=== PATIENT | female | born 1975 | race Caucasian/White ===

== ENCOUNTER 2016-05-17 09:15 | Outpatient (CLI) | payer OTHER ==
[2016-05-17] MEDS ORDERED: BARIUM SULFATE 135 ML BOTTLE PO ONE (10:27)
[2016-05-17] MEDS ORDERED: BARIUM SULFATE 176 GM BOTTLE PO ONE (10:27)
== END 2016-05-17 09:16 | disposition home or self-care (01) ==
DX: K21.9 Gastro-esophageal reflux disease without esophagitis (principal)
CPT/HCPCS: 74220; A9270

== ENCOUNTER 2016-06-08 13:54 | Day surgery (SDC) | payer OTHER ==
[2016-06-08] MEDS ORDERED: LACTATED RINGERS 1,000 ML IV ONE (14:21)
[2016-06-08] MEDS ORDERED: fentaNYL 250 MCG/5 ML VIAL IVP ONE (16:51)
[2016-06-08] MEDS ORDERED: MIDAZOLAM 2 MG/2 ML VIAL IVP ONE (16:51)
== END 2016-06-08 13:55 | disposition home or self-care (01) ==
PROC: 0DB68ZX Excision of Stomach, Via Natural or Artificial Opening Endoscopic, Diagnostic (ICD-10-PCS; principal; 2016-06-08 15:15)
DX: R11.10 Vomiting, unspecified (principal); R12 Heartburn; K31.7 Polyp of stomach and duodenum; I10 Essential (primary) hypertension; K21.9 Gastro-esophageal reflux disease without esophagitis
CPT/HCPCS: 43239; 81025; J3010; J7120

== ENCOUNTER 2016-06-14 10:43 | Outpatient (CLI) | payer OTHER | END 2016-06-14 10:44 | disposition home or self-care (01) | DX: K30 Functional dyspepsia (principal) ==

== ENCOUNTER 2016-06-27 18:58 | Outpatient (CLI) | payer OTHER | END 2016-06-27 18:59 | disposition home or self-care (01) | DX: K30 Functional dyspepsia (principal) ==

== ENCOUNTER 2017-12-01 09:25 | Outpatient (CLI) | payer MEDICAID, OTHER ==
[2017-12-01 12:10] LABS: BASOPHILS % (AUTO) 0.6 %; EOSINOPHILS # (AUTO) 0.1 10^3/uL (0.0-0.7); EOSINOPHILS % (AUTO) 1.4 %; HGB - HEMOGLOBIN 11.1 g/dL (12.0-16.0); LYMPHOCYTES # (AUTO) 1.8 10^3/uL (1.5-3.5); LYMPHOCYTES % (AUTO) 26.9 %; MEAN CORPUSCULAR HEMOGLOBIN 27.5 pg (27.0-31.0); MEAN CORPUSCULAR HGB CONC 33.2 g/dL (32.0-36.0); MEAN CORPUSCULAR VOLUME 82.8 fL (81.0-99.0); MEAN PLATELET VOLUME 8.2 fL (7.9-10.8); MEAN RETIC VALUE 104.8; MONOCYTES # (AUTO) 0.6 10^3/uL (0.0-1.0); NEUTROPHILS # (AUTO) 4.2 10^3/uL (1.5-6.6); NEUTROPHILS % (AUTO) 62.1 %; PLT - PLATELET COUNT 278 10^3/uL (130-450); RED BLOOD COUNT 4.03 10^6/uL (4.20-5.40); RED CELL DISTRIBUTION WIDTH 15.3 % (12.0-15.0); WHITE BLOOD COUNT 6.7 x10^3/uL (4.8-10.8)
[2017-12-01 12:49] LABS: FERRITIN 4.9 ng/mL (11.0-306.8)
[2017-12-01 12:53] LABS: FOLATE 20.04 ng/mL (5.90 - >24.8)
[2017-12-01 13:32] LABS: % IRON SATURATION 6 % (20-50); IRON 28 ug/dL (28-170); TOTAL IRON BINDING CAPACITY 498 ug/dL (250-450); TRANSFERRIN 356 mg/dL (192-382)
== END 2017-12-01 09:26 | disposition home or self-care (01) ==
LOC: LAB.WCP 09:25
PROVIDERS: ATTEND Family Medicine
DX: D50.9 Iron deficiency anemia, unspecified (principal)
CPT/HCPCS: 36415; 82607; 82728; 82746; 83540; 84466; 85025; 85044

== ENCOUNTER 2018-05-08 21:43 | Emergency (ER) | payer BC, OTHER ==
[2018-05-08 21:53] VITALS: BP 164/86
[2018-05-08] MEDS ORDERED: HYDROcod/ACETAM 5/325 MG TABLET PO STA (21:57)
[2018-05-08] MEDS ORDERED: IBUPROFEN 800 MG TABLET PO STA (21:57)
--- NOTE | 2018-05-08 21:59 | ED Physician Documentation ---
PD HPI LOWER EXT INJURY - Stated complaint Stated Complaint: FALL/FOOT PX - Chief complaint Chief Complaint: Trauma Ext - History obtained from History obtained from: Patient - History of Present Illness PD HPI LOW EXT INJURY LOCATION: Left, Foot Type of injury: Fall, Twist Where injury occurred: Home Timing - onset: Today Timing - details: Abrupt onset Review of Systems Constitutional: reports: Reviewed and negative Cardiac: reports: Reviewed and negative Respiratory: reports: Reviewed and negative PD PAST MEDICAL HISTORY - Past Medical History Cardiovascular: None Respiratory: None Endocrine/Autoimmune: None GI: GERD : None HEENT: None Psych: None Musculoskeletal: None Derm: None, Other - Past Surgical History Derm: Skin cancer surgery - Present Medications Home Medications: Ambulatory Orders Medication Instructions Recorded Confirmed Bcp 05/08/18 Hydrocodone/Acetaminophen 1 - 2 each PO Q6H PRN #14 tablet 05/08/18 [Hydrocodon-Acetaminophen 5-325] - Allergies Allergies/Adverse Reactions: Allergies Allergy/AdvReac Type Severity Reaction Status Date / Time cefixime [From Suprax] Allergy Unknown Verified 05/08/18 21:57 PD ED PE NORMAL - Vitals Vital signs reviewed: Yes - General General: Alert and oriented X 3, No acute distress - Extremities Extremities: Other (Tender and swollen over the left proximal fifth metatarsal without ankle or proximal fibular tenderness.) - Neuro Neuro: Alert and oriented X 3, Normal speech - Psych Psych: Normal mood, Normal affect Results - Vitals Vitals: Vital Signs - 24 hr 05/08/18 21:47 Temperature 36.1 C L Heart Rate 78 Respiratory 24 Rate Blood Pressure 164/86 H O2 Saturation 100 Oxygen O2 Source Room air Departure - Departure Disposition: 01 Home, Self Care Clinical Impression: Sprain of left foot Qualifiers: Encounter type: initial encounter Qualified Code(s): S93.602A - Unspecified sprain of left foot, initial encounter Condition: Good Record reviewed to determine appropriate education?: Yes Instructions: ED Sprain Foot Prescriptions: Hydrocodone/Acetaminophen [Hydrocodon-Acetaminophen 5-325] 1 - 2 each PO Q6H PRN #14 tablet PRN Reason: pain Comments: You can take ibuprofen in addition to the prescription pain medication as needed for pain. Return for new or worsening symptoms. Follow-up with your doctor in 1 week if not better. Do not drink or drive while taking narcotic pain medication. Note that many narcotic pain relievers also contain Tylenol/acetaminophen. Please ensure that your total dose of acetaminophen from all sources does not exceed 3 g (3000 mg) per day. You may get constipated while on this medication. Take a stool softener such as Colace twice a day while you are on it. Also add an xryp-zxp-hnrxmot laxative such as senna or MiraLAX on any day that you do not have a bowel movement. If you received a narcotic pain medication or sedative while in the emergency department, do not drive for the next 24 hours. Your blood pressure was elevated today on check into the emergency department. This does not mean that you have hypertension, it is a common phenomenon to come to the emergency department and have elevated blood pressure. I recommend that you see your primary care physician within the week to have it rechecked when you are feeling better.
--- NOTE | 2018-05-08 22:26 | XRAY Report ---
Reason: injruy from fall/ R foot pain Procedure Date: 05/08/2018 Accession Number: [id number] / [id number] Procedure: XR - Foot 3 View LT CPT Code: FULL RESULT: EXAM: LEFT FOOT RADIOGRAPHY EXAM DATE: 05/08/2018 10:09 PM. CLINICAL HISTORY: Injruy from fall/ R foot pain. COMPARISON: None. TECHNIQUE: 3 views. FINDINGS: Bones: Normal. No fractures or bone lesions. Joints: Normal. No subluxations. Soft Tissues: Lateral soft tissue swelling. No radiopaque foreign body identified. IMPRESSION: Soft tissue swelling, but no evidence of acute fracture. RADIA
[2018-05-08] MEDS ORDERED: HYDROcod/ACET 5/325 Prepack 4 PO STA (22:30)
== END 2018-05-08 22:43 | disposition home or self-care (01) ==
LOC: ED 21:43
DX: S93.602A Unspecified sprain of left foot, initial encounter (principal); X50.1XXA Overexertion from prolonged static or awkward postures, initial encounter; Y93.89 Activity, other specified; Y92.008 Other place in unspecified non-institutional (private) residence as the place of occurrence of the external cause
CPT/HCPCS: 73630; 99283; A9270

== ENCOUNTER 2018-05-29 11:39 | Outpatient (CLI) | payer BC ==
--- NOTE | 2018-05-29 15:21 | XRAY Report ---
Reason: SPRAIN OF OTHER LIGAMENT OF LT ANKLE,INITIAL ENCOU Procedure Date: 05/29/2018 Accession Number: [id number] / [id number] Procedure: WCP - Foot 3 View LT CPT Code: FULL RESULT: EXAM: LEFT FOOT RADIOGRAPHY EXAM DATE: 05/29/2018 11:58 AM. CLINICAL HISTORY: Sprain of other ligament of left ankle, initial encounter. COMPARISON: Foot 3 views left 05/08/2018 9:54 PM. TECHNIQUE: 3 views. FINDINGS: Bones: Normal. No fractures or bone lesions. Joints: Normal. No subluxations. Soft Tissues: No soft tissue gas or foreign body is identified. IMPRESSION: No fracture or dislocation. RADIA
--- NOTE | 2018-05-29 15:21 | XRAY Report ---
Reason: SPRAIN OF OTHER LIGAMENT OF LT ANKLE,INITIAL ENCOU Procedure Date: 05/29/2018 Accession Number: [id number] / [id number] Procedure: WCP - Ankle 3 View LT CPT Code: FULL RESULT: EXAM: LEFT ANKLE RADIOGRAPHY. EXAM DATE: 05/29/2018 11:58 AM. CLINICAL HISTORY: Sprain of other ligament of left ankle, initial encounter. COMPARISON: None. TECHNIQUE: 3 views. FINDINGS: Bones: Normal. No fractures or bone lesions. Joints: Normal. No effusion. No subluxations. The ankle mortise is normally aligned. Soft Tissues: Mild soft tissue swelling. IMPRESSION: Normal ankle radiography. RADIA
== END 2018-05-29 11:40 | disposition home or self-care (01) ==
LOC: DI.WCP 11:39
PROVIDERS: ATTEND Physician Assistant Medical
DX: S93.492A Sprain of other ligament of left ankle, initial encounter (principal)

== ENCOUNTER 2018-07-06 11:35 | Outpatient (CLI) | payer BC ==
--- NOTE | 2018-07-09 14:57 | Mammography Report ---
Reason: SCREENING MAMMO Procedure Date: 07/06/2018 Accession Number: [id number] / [id number] Procedure: MGN - Screening Mammo Dig Bilat CPT Code: FULL RESULT: EXAM: Screening Mammo Dig Bilat DATE: 07/06/2018 11:57 AM CLINICAL HISTORY: Screening exam. No reported risk factors. TECHNIQUE: (B) - Bilateral CC, laterally exaggerated CC, MLO views were obtained. COMPARISON: Baseline examination. PARENCHYMAL PATTERN: (VD) - The breast(s) demonstrate(s) extremely dense parenchyma, limiting the sensitivity of mammography. FINDINGS: There are no suspicious masses, calcifications, or areas of distortion. IMPRESSION: Negative examination. BI-RADS category 1. RECOMMENDATION: (ANNUAL) - Recommend routine annual screening mammography. BI-RADS CATEGORY: (1) - Negative. STANDARD QUALIFYING STATEMENTS: 1. This examination was reviewed with the aid of Computer-Aided Detection (CAD). 2. A negative or benign imaging report should not preclude biopsy if clinically suspicious findings are present. 3. Dense breasts may obscure an underlying neoplasm. 4. This examination was reviewed without the aid of 3D breast imaging (tomosynthesis).
== END 2018-07-06 11:36 | disposition home or self-care (01) ==
LOC: DI.N 11:35
DX: Z12.31 Encounter for screening mammogram for malignant neoplasm of breast (principal)
CPT/HCPCS: 77067

== ENCOUNTER 2018-07-09 05:36 | Outpatient (CLI) | payer BC ==
--- NOTE | 2018-07-09 10:16 | Ultrasound Report ---
Reason: PELVIC PAIN Procedure Date: 07/09/2018 Accession Number: [id number] / [id number] Procedure: US - Pelvic w/Transvaginal CPT Code: FULL RESULT: EXAM: PELVIC ULTRASOUND EXAM DATE: 07/09/2018 06:15 AM. CLINICAL HISTORY: Pelvic pain. COMPARISON: None. TECHNIQUE: Realtime transabdominal pelvic scan performed to identify the uterus and adnexa and as an overview of other pelvic structures, followed by transvaginal scan to provide greater detail of the uterus and adnexa, with static image documentation. FINDINGS: Uterus: 10.3 x 5.6 x 6.8 cm, volume 202 cc. Anteverted position. Heterogeneous echotexture. Masses: Multiple masses are identified, most consistent with fibroid uterus. Posteriorly a subserosal mass measuring 2.5 x 2.1 x 3.2 cm. An anterior fundal intramural fibroid measuring 2.5 x 3.4 x 2.2 cm. An anterior leftward intramural mass measuring 1.1 x 1.3 x 1.0 cm. Endometrium: 10 mm. Within normal limits. Cervix: Unremarkable. Right Ovary: 2.9 x 0.8 x 2.0 cm, volume 2.4 cc. Limited visualization, no definite abnormality. Left Ovary: 2.4 x 1.5 x 1.5 cm, volume 2.9 cc. Limited visualization with no definite abnormality. Free Fluid: None. Other: None. IMPRESSION: Fibroid uterus. RADIA
== END 2018-07-09 05:37 | disposition home or self-care (01) ==
LOC: DI 05:36
PROVIDERS: ATTEND Nurse Practitioner
DX: D25.1 Intramural leiomyoma of uterus (principal); D25.2 Subserosal leiomyoma of uterus
CPT/HCPCS: 76830; 76856

== ENCOUNTER 2018-08-06 08:00 | Outpatient (CLI) | payer BC ==
[2018-08-07 10:23] LABS: HEPATITIS C ANTIBODY NON-REACTIVE (NON-REACTIVE)
[2018-08-07 13:47] LABS: HIV AG/AB 4TH GEN NON-REACTIVE (NON-REACTIVE)
[2018-08-08 14:22] LABS: HSV 2 IGG TYPE SPECIFIC AB <0.90 index
== END 2018-08-06 08:01 | disposition home or self-care (01) ==
LOC: LAB.WCP 08:00
PROVIDERS: ATTEND Physician Assistant
DX: Z20.2 Contact with and (suspected) exposure to infections with a predominantly sexual mode of transmission (principal)
CPT/HCPCS: 36415; 81599; 86592; 86695; 86696; 86803; 87389

== ENCOUNTER 2018-08-30 08:00 | Outpatient (CLI) | payer BC ==
[2018-08-30 22:41] LABS: TRICHOMONAS VAGINALIS DNA NEGATIVE (NEGATIVE)
== END 2018-08-30 23:59 | disposition home or self-care (01) ==
LOC: LAB.R 08:00
PROVIDERS: ATTEND Physician Assistant Medical
DX: A74.9 Chlamydial infection, unspecified (principal)
CPT/HCPCS: 87491; 87591; 87661

== ENCOUNTER 2018-11-30 08:00 | Outpatient (CLI) | payer BC ==
[2018-11-30 22:17] LABS: TRICHOMONAS VAGINALIS DNA NEGATIVE (NEGATIVE)
== END 2018-11-30 23:59 | disposition home or self-care (01) ==
LOC: LAB.R 08:00
PROVIDERS: ATTEND Physician Assistant Medical
DX: A74.9 Chlamydial infection, unspecified (principal)
CPT/HCPCS: 87491; 87591; 87661

== ENCOUNTER 2019-06-04 14:03 | Outpatient (CLI) | payer BC ==
[2019-06-04 19:14] LABS: HCG,QUALITATIVE BLOOD NEGATIVE
== END 2019-06-04 23:59 | disposition home or self-care (01) ==
LOC: LAB.WCP 14:03
PROVIDERS: ATTEND Nurse Practitioner Family
DX: N91.2 Amenorrhea, unspecified (principal)
CPT/HCPCS: 36415; 84703

== ENCOUNTER 2019-07-03 16:09 | Outpatient (CLI) | payer BC | END 2019-07-03 16:10 | disposition home or self-care (01) | LOC: LAB 16:09 | PROVIDERS: ATTEND Physician Assistant Medical | DX: R10.2 Pelvic and perineal pain (principal) | CPT/HCPCS: 36415; 84702 ==

== ENCOUNTER 2019-07-05 16:54 | Outpatient (CLI) | payer BC ==
--- NOTE | 2019-07-06 10:51 | Ultrasound Report ---
Reason: PELVIC PAIN Procedure Date: 07/05/2019 Accession Number: [id number] / [id number] Procedure: US - Pelvic w/Transvaginal CPT Code: Final Report FULL RESULT: EXAM: PELVIC ULTRASOUND EXAM DATE: 07/05/2019 05:50 PM. CLINICAL HISTORY: PELVIC PAIN. 43-year-old female with LMP 04/13/2019. History of fibroids. COMPARISON: PELVIC W/TRANSVAGINAL 07/09/2018 5:41 AM. TECHNIQUE: Realtime transabdominal pelvic scan performed to identify the uterus and adnexa and as an overview of other pelvic structures, followed by transvaginal scan to provide greater detail of the uterus and adnexa, with static image documentation. FINDINGS: Uterus: 11.9 x 5.2 x 6.9 cm, volume 224 cc (previously measured as 202 cc). Anteverted position. Normal overall size and echotexture. Masses: Multiple fibroids, with the most conspicuous as follows: 1. 2.1 x 1.7 x 2.6 cm (previously 2.5 x 2.1 x 3.2 cm) posterior body subserosal. 2. 1.3 x 1.0 x 1.2 cm (previously 1.1 x 1.3 x 1.0 cm) left anterior lower uterine segment intramural. Endometrium: 16 mm. Normal. Cervix: Unremarkable. Right Ovary: 4.5 x 2.8 x 4.8 cm, volume 32 cc. Normal color Doppler blood flow. 3.3 x 3.0 x 2.4 cm cyst with debris fluid level. Left Ovary: 3.9 x 2.2 x 2.5 cm, volume 11 cc. Normal color Doppler blood flow. 1.9 x 1.8 x 1.8 cm partially collapsed mildly thick-walled simple cyst suggesting a corpus luteum. Free Fluid: None. Other: None. IMPRESSION: 1. Mildly enlarged fibroid uterus, similar to before. 2. 3 cm right ovary with a debris fluid level which may represent a hemorrhagic follicle or endometrioma. Consider 6 week ultrasound follow-up. RADIA
== END 2019-07-05 16:55 | disposition home or self-care (01) ==
LOC: DI 16:54
PROVIDERS: ATTEND Physician Assistant Medical
DX: D25.2 Subserosal leiomyoma of uterus (principal); D25.1 Intramural leiomyoma of uterus; N83.201 Unspecified ovarian cyst, right side; N83.202 Unspecified ovarian cyst, left side
CPT/HCPCS: 76830; 76856

== ENCOUNTER 2019-07-11 08:00 | Outpatient (CLI) | payer BC ==
[2019-07-11 11:55] LABS: ALBUMIN 4.2 g/dL (3.2-5.5); ALBUMIN/GLOBULIN RATIO 1.4 (1.0-2.2); BILIRUBIN,TOTAL 0.6 mg/dL (0.2-1.0); CALCIUM 8.3 mg/dL (8.5-10.3); CREATININE 0.8 mg/dL (0.4-1.0); TOTAL PROTEIN 7.1 g/dL (6.7-8.2)
[2019-07-11 11:58] LABS: BASOPHILS # (AUTO) 0.1 10^3/uL (0.0-0.1); BASOPHILS % (AUTO) 1.1 %; EOSINOPHILS # (AUTO) 0.2 10^3/uL (0.0-0.7); EOSINOPHILS % (AUTO) 2.4 %; HGB - HEMOGLOBIN 12.9 g/dL (12.0-16.0); LYMPHOCYTES # (AUTO) 2.2 10^3/uL (1.5-3.5); LYMPHOCYTES % (AUTO) 35.4 %; MEAN CORPUSCULAR HEMOGLOBIN 27.9 pg (27.0-31.0); MEAN CORPUSCULAR HGB CONC 31.9 g/dL (32.0-36.0); MEAN CORPUSCULAR VOLUME 87.5 fL (81.0-99.0); MEAN PLATELET VOLUME 9.9 fL (7.9-10.8); MONOCYTES # (AUTO) 0.6 10^3/uL (0.0-1.0); MONOCYTES % (AUTO) 10.1 %; NEUTROPHILS # (AUTO) 3.2 10^3/uL (1.5-6.6); NEUTROPHILS % (AUTO) 50.7 %; PLT - PLATELET COUNT 295 10^3/uL (130-450); RED BLOOD COUNT 4.63 10^6/uL (4.20-5.40); RED CELL DISTRIBUTION WIDTH 14.8 % (12.0-15.0); WHITE BLOOD COUNT 6.2 x10^3/uL (4.8-10.8)
== END 2019-07-11 23:59 | disposition home or self-care (01) ==
LOC: LAB.WCP 08:00
PROVIDERS: ATTEND Physician Assistant Medical
DX: N91.2 Amenorrhea, unspecified (principal)
CPT/HCPCS: 36415; 80053; 84443; 85025

== ENCOUNTER 2019-12-19 10:29 | Outpatient (CLI) | payer BC ==
--- NOTE | 2019-12-20 12:04 | Mammography Report ---
BILATERAL DIGITAL SCREENING MAMMOGRAM 3D/2D: 12/19/2019 CLINICAL: Routine screening. Comparison is made to exam dated: 07/06/2018 mammogram - [facility]. The tissue of both breasts is extremely dense, which lowers the sensitivity of mammography. No significant masses, calcifications, or other findings are seen in either breast. There has been no significant interval change. IMPRESSION: NEGATIVE There is no mammographic evidence of malignancy. A 1 year screening mammogram is recommended. This exam was interpreted at Station ID: [id number]. NOTE: For mammograms, a report in lay terms will be sent to the patient. Approximately 15% of breast malignancies will not be visualized mammographically. In the management of a palpable breast mass, a negative mammogram must not discourage biopsy of a clinically suspicious lesion. Electronically Signed By: Avinash [email or web address]/ping:12/19/2019 12:07:16 ACR BI-RADS Category 1: Negative 3341F PARENCHYMAL PATTERN: (VD) - The breast(s) demonstrate(s) extremely dense parenchyma, limiting the sen sitivity of mammography. BI-RADS CATEGORY: (1) - 1 RECOMMENDATION: (ANNUAL) - Recommend routine annual screening mammography. [id number] 1 year screening LATERALITY: (B)
== END 2019-12-19 10:30 | disposition home or self-care (01) ==
LOC: DI.N 10:29
DX: Z12.31 Encounter for screening mammogram for malignant neoplasm of breast (principal)
CPT/HCPCS: 77063; 77067

== ENCOUNTER 2020-08-13 08:00 | Outpatient (CLI) | payer BC, OTHER ==
[2020-08-13 21:09] LABS: CHLAMYDIA TRACHOMATIS DNA NEGATIVE (NEGATIVE); NEISSERIA GONORRHOEAE DNA NEGATIVE (NEGATIVE); TRICHOMONAS VAGINALIS DNA NEGATIVE (NEGATIVE)
[2020-08-13 22:51] LABS: BACTERIAL VAGINOSIS DNA NEGATIVE (NEGATIVE); CANDIDA GLABRATA DNA NEGATIVE (NEGATIVE); CANDIDA GROUP DNA NEGATIVE (NEGATIVE); CANDIDA KRUSEI DNA NEGATIVE (NEGATIVE); TRICHOMONAS VAGINALIS DNA NEGATIVE (NEGATIVE)
== END 2020-08-13 23:59 | disposition home or self-care (01) ==
LOC: LAB.N 08:00
PROVIDERS: ATTEND Family Medicine
DX: N89.8 Other specified noninflammatory disorders of vagina (principal)
CPT/HCPCS: 87491; 87591; 87661; 87801

== ENCOUNTER 2021-03-05 18:43 | Emergency (ER) | payer OTHER ==
[2021-03-05 18:51] VITALS: BP 147/94
[2021-03-05 19:02] LABS: BILIRUBIN,URINE NEGATIVE (NEGATIVE); GLUCOSE, URINE (UA) NEGATIVE (NEGATIVE); KETONES,URINE (UA) NEGATIVE (NEGATIVE); LEUKOCYTE ESTERASE, URINE SMALL (NEGATIVE); NITRITE,URINE NEGATIVE (NEGATIVE); OCCULT BLOOD,URINE LARGE (NEGATIVE); PROTEIN,URINE NEGATIVE (NEGATIVE); UROBILINOGEN,URINE 0.2 (NORMAL) E.U./dL (NORMAL)
[2021-03-05 19:13] LABS: CLARITY,URINE HAZY (CLEAR); HCG UR QUAL NEGATIVE
[2021-03-05 19:19] LABS: BACTERIA,URINE Moderate /HPF (None Seen); SQUAMOUS EPITHELIAL CELL,UR FEW Squamous (<= Few)
[2021-03-05] MEDS ORDERED: KETOROLAC 60 MG/2 ML VIAL IM STA (19:22)
--- NOTE | 2021-03-05 19:23 | ED Physician Documentation ---
PD HPI ABD PAIN - Stated complaint Stated Complaint: BLOOD IN URINE/FEMALE - Chief complaint Chief Complaint: Abd Pain - History obtained from History obtained from: Patient - Additional information Additional information: 45-year-old woman presents with severe left flank pain starting this morning, albeit somewhat better now, and blood-tinged urine. She has no personal history of renal colic, but an extensive family history of same with unsure reasoning. She denies dysuria. No vaginal bleeding or discharge. She does note that she missed her last menses. But took test at home which were negative. Review of Systems Ten Systems: 10 systems reviewed and negative Constitutional: denies: Fever, Chills Cardiac: reports: Reviewed and negative Respiratory: reports: Reviewed and negative PD PAST MEDICAL HISTORY - Past Medical History Past Medical History: Yes Cardiovascular: None Respiratory: None Endocrine/Autoimmune: None GI: GERD : None HEENT: None Psych: None Musculoskeletal: None Derm: None, Other - Past Surgical History Past Surgical History: Yes Derm: Skin cancer surgery - Present Medications Home Medications: Ambulatory Orders Medication Instructions Recorded Confirmed Ciprofloxacin HCl [Cipro] 500 mg PO BID #20 tablet 03/05/21 Fluconazole [Diflucan] 150 mg PO ONCE PRN #1 tablet 03/05/21 HYDROcod/ACETAM 5/325 [[place] 5/325] 1 - 2 tab PO Q6H PRN #15 tablet 03/05/21 - Allergies Allergies/Adverse Reactions: Allergies Allergy/AdvReac Type Severity Reaction Status Date / Time cefixime [From Suprax] Allergy Unknown Verified 03/05/21 18:51 - Social History Does the pt smoke?: No Smoking Status: Never smoker Does the pt drink ETOH?: Yes Does the pt have substance abuse?: No - Immunizations Immunizations are current?: Yes PD ED PE NORMAL - Vitals Vital signs reviewed: Yes - General General: Alert and oriented X 3, Other (She appears uncomfortable) - Respiratory Respiratory: No respiratory distress, Clear bilaterally - Abdomen Abdomen: Normal bowel sounds, Soft, Non tender - Back Back: No CVA TTP - Neuro Neuro: Alert and oriented X 3, Normal speech Results - Vitals Vitals: Vital Signs - 24 hr 03/05/21 18:46 Temperature 37.1 C Heart Rate 84 Respiratory 18 Rate Blood Pressure 147/94 H O2 Saturation 99 Oxygen O2 Source Room air - Labs Labs: Laboratory Tests 03/05/21 18:54 Urine Color YELLOW Urine Clarity HAZY Urine pH 5.0 Ur Specific [place] 1.025 Urine Protein NEGATIVE Urine Glucose (UA) NEGATIVE Urine Ketones NEGATIVE Urine Occult Blood LARGE H Urine Nitrite NEGATIVE Urine Bilirubin NEGATIVE Urine Urobilinogen 0.2 (NORMAL) Ur Leukocyte Esterase SMALL H Urine RBC 11-25 H Urine WBC 6-10 H Ur Squamous Epith Cells FEW Squamous Urine Bacteria Moderate H Ur Microscopic Review INDICATED Urine Culture Comments INDICATED Urine HCG, Qual NEGATIVE PD MEDICAL DECISION MAKING - ED course ED course: 45-year-old woman presents with flank pain that on the face of it actually sounds most like renal colic with a infected looking urine but no signs of sepsis. She was much better after Toradol here. CT done to rule out obstructed pyelonephritis and this was negative thankfully. Departure - Departure Disposition: 01 Home, Self Care Clinical Impression: Pyelonephritis Condition: Good Record reviewed to determine appropriate education?: Yes Instructions: Pyelonephritis Dc Prescriptions: Ciprofloxacin HCl [Cipro] 500 mg PO BID #20 tablet Fluconazole [Diflucan] 150 mg PO ONCE PRN #1 tablet PRN Reason: yeast infection HYDROcod/ACETAM 5/325 [[place] 5/325] 1 - 2 tab PO Q6H PRN #15 tablet PRN Reason: Pain Comments: Prescription sent electronically to [facility] in [place]. As discussed no findings of kidney stone tonight thankfully, just the kidney infection. Return if you worsen. I am prescribing a short course of narcotic pain medication for you. These are potentially dangerous and addictive medications that should be used carefully. These medications may constipate you. Take an lndr-irc-qvkpkrd stool softener (docusate) twice daily with plenty of water while taking these medications. If you go 24 hours without a bowel movement, take mzwb-iyu-vtnevzq miralax, per package instructions. Do not drink or drive while taking these medications. If you received narcotic or sedating medications while in the emergency department, do not drive for 24 hours. Store this medication in a safe, secure place and out of reach of children. It is a violation of federal law to give or sell this medication to another person or to use in a manner other than prescribed. The ED will not refill narcotic prescriptions, including prescriptions lost or stolen. To dispose of unwanted medications: 1. [facility] at [address] in [place] has a medication drop box. They accept prescription medications (in pill form) Monday through Monday 9:00 a.m. to 5:00 p.m. 2. The [facility] accepts prescription medications (in pill form only) for disposal year round. Call for more information. 3. Contact the [facility] for the next [facility] sponsored prescription drug collection event. , [phone], or [phone]; Note that many narcotic pain relievers also contain Tylenol/acetaminophen. Please ensure that your total dose of acetaminophen from all sources does not exceed 3 g (3000 mg) per day. We will culture your urine, the results should be done in 48-72 hours. If an antibiotic change is necessary we will call you. Return if worse in the meantime, especially if you develop increasing flank pain, fevers, or cannot keep down the medication.
--- NOTE | 2021-03-05 20:40 | CT Report ---
PROCEDURE: Abdomen/Pelvis WO INDICATIONS: Left flank pain TECHNIQUE: Noncontrast 5 mm thick sections acquired from the diaphragms to the symphysis. 5 mm coronal and sagi ttal reformats were then performed. For radiation dose reduction, the following was used: automated exposure control, adjustment of mA and/or kV according to patient size. COMPARISON: None. FINDINGS: Image quality: Excellent. ABDOMEN: Lung bases: Lung bases are clear. Heart size is normal. Urinary system: Limited by lack of IV contrast. No urinary tract calculus, hydroureteronephrosis, per inephric fat stranding, or bladder abnormality identified. Remaining solid abdominal organs: Grossly unremarkable unenhanced CT appearance of the liver, spleen, pancreas, and adrenal glands. Normal gallbladder. Peritoneum and bowel: Unenhanced bowel loops demonstrate normal wall thickness and caliber. No free fluid or air. Nodes and vessels: No retroperitoneal or mesenteric adenopathy by size criteria. Aorta and inferior vena cava are normal in caliber. Miscellaneous: No ventral hernias. PELVIS: Genitourinary: Unenhanced uterus and ovaries are grossly normal. Miscellaneous: No inguinal hernias or adenopathy. Multiple pelvic phleboliths. Bones: No suspicious bony lesions. No vertebral body compression fractures. IMPRESSION: No acute finding. No urinary tract calculus or hydroureteronephrosis demonstrated. Reviewed by: Ranjeet Blake MD on 03/05/2021 8:39 PM PST Approved by: Ranjeet Blake MD on 03/05/2021 8:39 PM PST Station ID: [id number]
[2021-03-05] MEDS ORDERED: CIPROFLOXACIN 250 MG TABLET PO STA (20:44)
[2021-03-05] MEDS ORDERED: HYDROcod/ACET 5/325 Prepack 4 PO STA (20:45)
== END 2021-03-05 21:00 | disposition home or self-care (01) ==
LOC: ED 18:43
DX: N12 Tubulo-interstitial nephritis, not specified as acute or chronic (principal)
CPT/HCPCS: 74176; 81001; 81025; 87077; 87086; 87181; 96372; 99284; A9270; 81003

== ENCOUNTER 2022-09-21 08:40 | Outpatient (CLI) | payer BC ==
--- NOTE | 2022-09-22 09:26 | Mammography Report ---
BILATERAL DIGITAL SCREENING MAMMOGRAM 3D/2D: 09/21/2022 CLINICAL: Routine screening. Comparison is made to exams dated: 12/19/2019 mammogram and 07/06/2018 mammogram - [facility]. Both breasts are extremely dense, which lowers the sensitivity of mammography (category d />75% gland ular tissue). No significant masses, calcifications, or other findings are seen in either breast. There has been no significant interval change. IMPRESSION: NEGATIVE There is no mammographic evidence of malignancy. A 1 year screening mammogram is recommended. Based on the Tyrer Cuzick model (a risk assessment model) the patients lifetime risk is 16.0% and he r 10 year risk is 2.8%. According to the ACR, ACS, and NCCN guidelines, an annual breast MRI exam rivera ng with mammogram is recommended if the patients lifetime risk is 20% or greater. This exam was interpreted at Station ID: [id number]. NOTE: For mammograms, a report in lay terms will be sent to the patient. Approximately 15% of breast malignancies will not be visualized mammographically. In the management of a palpable breast mass, a negative mammogram must not discourage biopsy of a clinically suspicious lesion. Electronically Signed By: Ihsan Owen M.D. aty/penrad:09/21/2022 10:36:31 letter sent: No_Letter ACR BI-RADS Category 1: Negative 3341F PARENCHYMAL PATTERN: (VD) - The breast(s) demonstrate(s) extremely dense parenchyma, limiting the sen sitivity of mammography. BI-RADS CATEGORY: (1) - 1 Mammogram [id number] 1 year screening LATERALITY: (B)
== END 2022-09-21 08:41 | disposition home or self-care (01) ==
LOC: DI.N 08:40
DX: Z12.31 Encounter for screening mammogram for malignant neoplasm of breast (principal)

== ENCOUNTER 2023-06-08 08:53 | Day surgery (SDC) | payer BC ==
[2023-06-08] MEDS: LACTATED RINGERS 1,000 ML IV ONE ×2 (09:05→11:01)
[2023-06-08 09:13] VITALS: O2SAT 100
[2023-06-08 09:15] LABS: HCG UR QUAL NEGATIVE
[2023-06-08] MEDS ORDERED: PROPOFOL 500 MG/50 ML 500 MG/50 ML VIAL ONE (09:47)
--- NOTE | 2023-06-08 10:08 | ANESTHESIA ---
Pre-Anesthesia VS, & Labs - Diagnosis screening exam - Procedure colonscopy Vital Signs: Temp Pulse Resp BP Pulse Ox O2 Flow Rate 36.2 C L 83 14 111/81 H 100 06/08/23 09:10 06/08/23 09:10 06/08/23 09:10 06/08/23 09:10 06/08/23 09:10 Height: 5 ft 2 in Weight (kg): 59.9 kg Body Mass Index: 24.1 BMI Classification: Normal - NPO >8 hours - Is Patient ?: No Home Medications and Allergies Home Medications: Ambulatory Orders Cetirizine [ZyrTEC] 10 mg PO DAILY PRN 06/07/23 Cetirizine [ZyrTEC] 10 mg PO DAILY PRN 06/07/23 Allergies/Adverse Reactions: Allergies Allergy/AdvReac Type Severity Reaction Status Date / Time cefixime [From Suprax] Allergy Unknown Verified 03/05/21 18:51 Anes History & Medical History - Anesthetic History Family history of Anesthesia Complications: Denies Family history of Malignant Hyperthermia: Denies - Medical History Cardiovascular: reports: None Pulmonary: reports: None Gastrointestinal: reports: GERD Urinary: reports: None Neuro: reports: None Musculoskeletal: reports: None Endocrine/Autoimmune: reports: None Blood Disorders: reports: None Skin: reports: None, Other (history of melanoma) Smoking Status: Never smoker Psychosocial: reports: No issues indicated History of Cancer?: Yes (melanoma) - Surgical History Dermatologic: reports: Other Exam General: Alert, Oriented x3, Cooperative, No acute distress Dental: WNL Mouth Openin Fingerbreadth Neck Mobility: Normal Mallampati classification: II Thyromental Distance: 4-6 cm Mental/Cognitive Status: Alert/Oriented X3, Normal for patient Plan Anesthesia Type: General, Total IV Consent for Procedure(s) Verified and Reviewed: Yes Code Status: Attempt Resuscitation ASA classification: 1-Healthy patient Is this case an emergency?: No
[2023-06-08] MEDS ORDERED: MIDAZOLAM 2 MG/2 ML VIAL ONE (10:13)
[2023-06-08] MEDS ORDERED: LIDOCAINE-MPF 2% 5 ML VIAL ONE (10:31)
[2023-06-08 11:39] VITALS: BP 108/67
--- NOTE | 2023-06-08 11:57 | ANESTHESIA POST OP EVALUATION ---
Anesthesia Post Eval - Post Anesthesia Eval Vitals: Last Vital Signs Temp 36.7 C 06/08/23 11:20 Pulse 63 06/08/23 11:20 Resp 16 06/08/23 11:20 BP 108/67 06/08/23 11:20 Pulse Ox 100 06/08/23 11:20 O2 Flow Rate CV Function Including HR & BP: Stable Pain Control: Satisfactory Nausea & Vomiting: Negative Mental Status: Baseline Respiratory Status: Airway Patent Hydration Status: Satisfactory Anesthesia Complications: None
== END 2023-06-08 08:54 | disposition home or self-care (01) ==
LOC: SDS 08:53
PROVIDERS: ATTEND Surgery
DX: Z12.11 Encounter for screening for malignant neoplasm of colon (principal); Z80.0 Family history of malignant neoplasm of digestive organs
CPT/HCPCS: 45378; 81025; J7120